=== PATIENT | female | born 2005 ===

== ENCOUNTER 2025-10-09 13:14 | Emergency (ER) | payer OTHER ==
[~2025-10-09] VITALS: Ht 154.9 cm; Wt 48.0 kg
[2025-10-09 13:19] VITALS: O2SAT 99
[2025-10-09 13:32] VITALS: BP 114/70; PULSE 80; RESP 18; TEMP 36.9; O2SAT 100
[2025-10-09] MEDS ORDERED: ISOP30DR11 LEFT EAR (15:11)
== END 2025-10-09 15:28 | disposition home or self-care (01) ==
LOC: ER 13:14
DX: H61.22 Impacted cerumen, left ear (principal)
CPT/HCPCS: 99282